=== PATIENT | female | born 1980 ===

== ENCOUNTER → 2018-07-25 23:10 | Outpatient (REF) | payer BC, SELFPAY ==
[2018-07-26 01:46] LABS: Alanine Aminotransferase 35 IU/L (9-52); Albumin 4.6 g/dL (3.5-5.0); Albumin Globulin Ratio 1.4 (1.0-2.8); Alkaline Phosphatase 76 U/L (38-126); Aspartate Aminotransferase 24 IU/L (14-36); BUN Creatinine Ratio 17.5 (6-22); Bilirubin Total 0.3 mg/dL (0.2-1.3); Blood Urea Nitrogen 14 mg/dL (7-17); Calcium 9.8 mg/dL (8.4-10.2); Carbon Dioxide 25 mmol/L (22-32); Chloride 100 mmol/L (98-107); Cholesterol 170 mg/dL (140-199); Estimated Glomerular Filt Rate > 60.0 mL/min (>60); Globulin 3.3 g/dL (1.7-4.1); Glucose 98 mg/dL (70-100); HDL Cholesterol 64 mg/dL (40-60); HEMOLYSIS < 15 (0-50); LDL Cholesterol Calculated 97 mg/dL (<100); Potassium 4.8 mmol/L (3.4-5.1); Sodium 137 mmol/L (137-145); Total Protein 7.9 g/dL (6.3-8.2); Triglycerides 47 mg/dL (35-150)
[2018-07-28 19:44] LABS: ANA Pattern Speckled; ANA Screen, IFA Positive (Negative); ANA Titer 1:40 titer (<1:40)
== END ==
LOC: LAB 23:10
PROVIDERS: Visit Provider Family Medicine
DX: N80.9 Endometriosis, unspecified (principal); M25.519 Pain in unspecified shoulder; F41.1 Generalized anxiety disorder
CPT/HCPCS: 36415; 80053; 80061; 84443; 86038